=== PATIENT | female | born 1950 | race African-American/Black ===

== ENCOUNTER 2020-01-17 16:48 | Emergency (ER) | payer OTHER, MEDICAID ==
[~2020-01-17] VITALS: Ht 157.5 cm; Wt 67.0 kg
[~2020-01-17 16:48] MED LIST: AMLO10TA80 PO; BISO10TA11 PO; LOSA1TAB40 PO
[2020-01-17] MEDS ORDERED: HYDROCODONE/ACETAMINOPHEN 5/325MG TABLET PO ONE (18:15)
[2020-01-17 21:32] VITALS: BP 146/80
== END 2020-01-17 21:37 | disposition home or self-care (01) ==
LOC: ER 16:48
DX: R07.9 Chest pain, unspecified (principal); I10 Essential (primary) hypertension; E11.9 Type 2 diabetes mellitus without complications; V43.52XA Car driver injured in collision with other type car in traffic accident, initial encounter; Y93.9 Activity, unspecified; Y92.410 Unspecified street and highway as the place of occurrence of the external cause
CPT/HCPCS: 71045; 71250; 93005; 99285